=== PATIENT | female | born 1975 ===

== ENCOUNTER 2023-04-10 16:00 | Outpatient (RCR) | payer BC, SELFPAY | END 2023-07-19 16:04 | disposition home or self-care (01) | PROVIDERS: Visit Provider Physician Assistant Surgical | DX: S42.301A Unspecified fracture of shaft of humerus, right arm, initial encounter for closed fracture (principal); M25.511 Pain in right shoulder; M25.611 Stiffness of right shoulder, not elsewhere classified; Z51.89 Encounter for other specified aftercare | CPT/HCPCS: 97110; 97140; 97161; 97530 ==